=== PATIENT | female | born 1960 | race Caucasian/White ===

== ENCOUNTER → 2016-09-10 | Outpatient (CLI) | payer OTHER ==
[2016-09-10 20:34] LABS: THYROID STIMULATING HORMONE 0.58 uIU/ml (0.34-5.60)
[2016-09-10 21:20] LABS: FREE T3 3.8 pg/mL (2.5-3.9)
[2016-09-10 21:22] LABS: FREE THYROXIN (T4) 0.94 ng/dL (0.58-1.64)
== END | disposition home or self-care (01) ==
LOC: SLAB 18:16
PROVIDERS: Internal Medicine
DX: E03.9 Hypothyroidism, unspecified (principal)
CPT/HCPCS: 84439; 84443; 84481; 84482